=== PATIENT | male | born 1990 | race Hispanic/Latino ===

== ENCOUNTER 2017-10-20 11:25 | Day surgery (SDC) | payer BC ==
--- NOTE | 2017-10-20 15:30 | Cat Scan Report ---
CT CHEST WITH AND WITHOUT CONTRAST: HISTORY: Disorders of male genital organs. COMPARISON: none. TECHNIQUE: Helical CT in 1.25mm intervals following IV contrast. Sagittal and coronal reformatted images. FINDINGS: Thyroid gland: Normal. Tracheobronchial tree: Normal. Esophagus: Normal. Heart: Normal. Pericardium: Normal. Mediastinum: Normal. Lung Huertas: Normal. Pleural Spaces: Normal. Musculoskeletal: Normal. IMPRESSION: Unremarkable CT chest with and without contrast.
--- NOTE | 2017-10-20 15:33 | Cat Scan Report ---
CT ABDOMEN PELVIS WITH AND WITHOUT CONTRAST: HISTORY: Disorders of male genital organs. COMPARISON: none. TECHNIQUE: Helical CT in 1.25mm intervals before and after IV contrast. Sagittal and coronal reconstructions. FINDINGS: Lung bases: Normal. Liver: Normal. Biliary system: Normal. Pancreas: Normal. Spleen: Normal. Kidneys/ureters/bladder: Normal. Adrenal glands: Normal. Aorta: Normal. Intestines: Normal. Appendix: Normal. Pelvic viscera: Normal. Ascites: None. Adenopathy: None. Musculoskeletal: Normal. Comment: There is a complex partially cystic mass or inflammatory process in the right side of the scrotum measuring up to 8.1 x 6.0 cm in axial plane. The right testicle is not confidently identified on CT. This presumably represents a right testicular mass. Followup scrotal ultrasound will be performed. The left testicle is normal. IMPRESSION: Unremarkable CT scan of the abdomen and pelvis with and without contrast. Right scrotal mass or inflammatory process, see above.
[2017-10-20] MEDS ORDERED: ANCEF/STERILE WATER 2 GM/20 ML IV NR (16:20)
[2017-10-20] MEDS ORDERED: LACTATED RINGERS 1,000 ML ONE (17:27)
[2017-10-20] MEDS ORDERED: MARCAINE 0.25% INFILTRATI ONE ×2 (17:42→18:56)
[2017-10-20] MEDS ORDERED: NEOSPORIN GU IR ONE ×2 (17:42→18:54)
[2017-10-20] MEDS ORDERED: XYLOCAINE 1% 20 mL ONE (17:42)
[2017-10-20] MEDS ORDERED: LACTATED RINGERS 1,000 ML IV SCH (18:20)
[2017-10-20] MEDS ORDERED: NACL 0.9% IR ONE (18:56)
--- NOTE | 2017-10-20 19:08 | Post Operative Note ---
Date of procedure: 10/20/17 Pre-op diagnosis: r solid testicular mass Post-op diagnosis: same Findings: huge mass Procedure: r radical orch Anesthesia: SPENCERA Surgeon: GOVIND MURRIETA Estimated blood loss: minimal Pathology: list (r testes) Specimen disposition: to lab Condition: stable Disposition: PACU
--- NOTE | 2017-10-20 19:11 | Discharge Summary ---
Short Stay Discharge Plan Activity: other (no straining ) Weight Bearing Status: Full Weight Bearing Diet: regular Wound: open to air, keep clean and dry Special Instructions: other (can remove dressing in 48 hrs ) Follow up with: JACK URBANO MD [Primary Care Provider] - 7 Days GOVIND MURRIETA MD [Staff Physician] - 10 Days
[2017-10-20] MEDS ORDERED: PERCOCET 5/325 PO PRN (19:40)
[2017-10-20] MEDS ORDERED: DILAUDID IV PRN (20:02)
[2017-10-20] MEDS ORDERED: ZOFRAN IV PRN (20:02)
[2017-10-20] MEDS ORDERED: NARCAN 0.4 MG/1 ML IV PRN (20:02)
[2017-10-20] MEDS ORDERED: TORADOL IV PRN (20:02)
[2017-10-20] MEDS ORDERED: DEMEROL IV PRN (20:02)
--- NOTE | 2017-10-20 20:04 | Anesthesia Day of Surgery ---
Anesthesia Day of Surgery - Day of Surgery Patient Examined: Yes Patient H&P Reviewed: Yes Patient is NPO: Yes
--- NOTE | 2017-10-20 20:04 | Anesthesia Consultation ---
Anesthesia Consult and Med Hx Date of service: 10/20/17 - Airway Anesthetic Teeth Evaluation: Good ROM Head & Neck: Adequate Mental/Hyoid Distance: Adequate Mallampati Class: Class I Intubation Access Assessment: Good - Pulmonary Exam CTA: Yes - Cardiac Exam Cardiac Exam: RRR - Pre-Operative Health Status ASA Pre-Surgery Classification: ASA1 Proposed Anesthetic Plan: General, TIVA - Pre-Anesthesia Comment Pre-Anesthesia Comments: Patient with family history of MH so will avoid triggers and do strict TIVA with LMA - Pulmonary Hx Smoking: No Hx Sleep Apnea: No (FARTUN PRE SCREEN LOW RISK) - Cardiovascular System Hx Hypertension: No - Hematic Hx Anemia: Yes ( CHILD ONLY) - Other Systems Hx Cancer: No (SCROTAL TUMOR-?CANCER)
--- NOTE | 2017-10-20 20:04 | Post Anesthesia Evaluation ---
- Post Anesthesia Evaluation Patient Participated: Yes Airway Patent: Yes Stable Respiratory Function: Yes Nausea/Vomiting: No Temp > 96.8F: No Pain Manageable: Yes Adequeate Hydration: Yes Anesthesia Complications: No
[2017-10-20 20:46] VITALS: BP 138/85
[2017-10-20] MEDS ORDERED: ZOFRAN IM ONE (21:02)
--- NOTE | 2017-10-20 21:11 | Operative Report ---
PREOPERATIVE DIAGNOSIS: Very large right testicular solid and complex heterogeneous mass. POSTOPERATIVE DIAGNOSIS: Very large right testicular solid and complex heterogeneous mass. PROCEDURE: Right radical orchiectomy. SURGEON: Primitivo Franz M.D. ANESTHESIA: General. FINDINGS: This is a gentleman who presented with an enlarging right testicular mass. He had a CT scan and ultrasound confirmed this in the hospital. He now presents for right radical orchiectomy. All risks and implications were discussed with him and the family. He also has microlithiasis on the left side. DESCRIPTION OF PROCEDURE: The patient was brought to the operating room and placed on the operating table. Following induction of anesthesia, placed on the operating table, prepped and draped in usual sterile fashion. An inguinal incision was made, carried through skin and superficial fascial layers, carried down to the Carmelita fascia, which was opened and the external ring was exposed. The external oblique aponeurosis was opened and the cord was mobilized. We did not mobilize the scrotum at all. At this point, just mobilized the cord and placed a Roland around it. Any small vessels or cremasterics were dissected free of the cord. At this point, at the level of the internal ring, high ligation was achieved. We divided the cord into 2 segments and triply ligated it, one with a suture ligature. Hemostasis was assured. The cord was then divided and it was always held on the distal end with a Maricruz clamp. There was no spillage of anything. At this point, the testis, which was quite large, was delivered with manipulation rocking it back and forth until it was delivered from the scrotum. There were small gubernacular vessels, which were tied and testis was sent to pathology. Wound was irrigated. External oblique aponeurosis was approximated after we were sure hemostasis was excellent with 2-0 Vicryl, superficial fascia with 3-0 chromic, and skin with running 4-0 Vicryl and Steri-Strips. He was brought to recovery room, minimal blood loss, in stable condition. JOB# [id number] JERRICA/JOSE
--- NOTE | 2017-10-24 07:57 | Ultrasound Report ---
ULTRASOUND TESTICULAR DOPPLER COMPLETE History: Disorders of marrow genital organs, right testicular mass. Technique: Trans-scrotal ultrasound with spectral doppler interrogation. Findings: The left testicle measures 5.1 x 2.3 x 3.0 cm. Microlithiasis is identified throughout the left testicle but no evidence for mass or cyst. The left epididymis is unremarkable. No normal right testicle or epididymis is confidently identified. There is a large complex, partially cystic, partially solid mass in the right side of the scrotum measuring up to 8 cm in diameter. This presumably represents a right testicular mass. No significant hydrocele or varicocele is identified. Spectral Doppler waveforms demonstrate arterial flow bilaterally. No evidence for torsion. IMPRESSION: Complex right testicular mass as described above. Microlithiasis in the left testicle. These findings were discussed with Dr. Franz at the time of the examination.
== END 2017-10-20 21:45 | disposition home or self-care (01) ==
LOC: CT 11:25 → OR 11:25 → EDSTATUS 12:00 → OR 21:45
PROVIDERS: ATTEND Urology
DX: C62.91 Malignant neoplasm of right testis, unspecified whether descended or undescended (principal); Z79.899 Other long term (current) drug therapy; Z88.8 Allergy status to other drugs, medicaments and biological substances; Z80.52 Family history of malignant neoplasm of bladder
CPT/HCPCS: 54530; 71270; 74178; 88309; 88342; 93975; J0690; J7120; Q9967; 88341